=== PATIENT | female | born 1950 | race Caucasian/White ===

== ENCOUNTER 2017-01-15 12:20 | Emergency (ER) | payer MEDICARE, OTHER ==
--- NOTE | ~2017-01-15 | CR72 ---
[facility] A Service of [facility] & [facility] RADIOLOGY TEXT RESULTS PATIENT: ROB IBARRA LOCATION: [facility] : 50 UNIT #: [id number] AGE: [address]: Gurpreet Mayen MD SEX: F ORDER DR: [id number] [facility] [address] [place], [place] [address] [id number] MR#: [id number] Acc #: [id number] NAME: ROB IBARRA : 1950 SEX: F STUDY DATE/TIME: 01/15/2017 12:45 UNIT: [facility] ROOM: STUDY DESCRIPTION: CR Chest Single View Portable Attending Physician: Gurpreet Mayen M.D. Ordering Physician: Gurpreet Mayen M.D. Primary Care Physician: Janet Carlos Aprn MEDICAL IMAGING REPORT This report is preliminary unless electronic signature is present EXAM Chest portable 01/15/2017 1245 hours HISTORY 66-year-old woman with shortness of air and chest pain this morning. COMPARISON 10/30/2014 FINDINGS 2 upright portable views demonstrate normal heart size with stable mildly tortuous atherosclerotic aorta. There is mild pulmonary venous distension with mild interstitial prominence at both lung bases. Question small, new left effusion. IMPRESSION There is mild bibasilar interstitial prominence slightly increased from prior exam. This could represent mild interstitial edema or interstitial pneumonitis. There is hazy blunting of the left costophrenic angle suggesting a new, small left effusion. Dictated by... Ankita Cordero M.D. THIS IS AN ELECTRONICALLY VERIFIED REPORT Ankita Cordero M.D. at 01/15/2017 2:32 PM ROSITA/garrick TD: 01/15/2017 13:42 JOB #: [id number] MEDICAL IMAGING REPORT Page 1 of 1 COPY
--- NOTE | ~2017-01-15 | EKG ---
PATIENT: ROB IBARRA UNIT #: [id number] Ventricular Rate: 103 BPM Atrial Rate: 103 BPM P-R Interval: 152 ms QRS Duration: 84 ms Q-T Interval: 328 ms QTC Calculation(Bezet): 429 ms P [place]: 74 degrees Calculated R [place]: 47 degrees Calculated T [place]: 87 degrees Diagnosis Line: Suspect unspecified pacemaker failure Diagnosis Line: Sinus tachycardia Diagnosis Line: Otherwise normal ECG Diagnosis Line: When compared with ECG of 10-JUN-2015 11:50, Diagnosis Line: No significant change was found Diagnosis Line: Confirmed by BRIEN SANCHEZ MD ([id number]) on Diagnosis Line: 01/15/2017 4:40:42 PM INTERPRETING MD: LAURA RICARDO
[~2017-01-15 12:20] MED LIST: ADVAIR 500-501 EACH IH; ADVAIR DISKU1 500/50 INH; ALB/IPRATROPIUM/1 E1 INH; ALBUTEROL0.83 MG/ML IH; ALBUTEROL17 GM INH; AMLODIPINE BESY10 MG PO; ARTIFICIAL TEA1 EACH OP; ARTIFICIAL TEA3.5 G2 OP; ASPIRIN EC81 M1 PO; ASPIRIN ENTERI325 M1 PO; ATROVENT NEB; AYR SALINE50 M1 NS; BAYER ASPIRIN325 M1 PO; BENZONATATE PO; BIOTENE MOISTUR45 ML MM; CALCIUM + D 6001 TA1 PO; CALCIUM 600 + D1 TA1 PO; COMBIVENT14.7 GM; CYMBALTA PO; DICLOFENAC PO; DOXYCYCLINE MO100 MG PO; DUONEB 2.5-0.5 M3 ML NEB; FERRO-TIME325 MG PO; FLEXERIL PO; FLEXERIL10 MG PO; HYDROCODON-ACE1 EAC1 PO; HYDROCODONE-APA1 T43 PO; IRON325 ( 651 PO; LEVAQUIN PO; LEVAQUIN750 MG PO; LIPITOR PO; LIPITOR20 MG PO; LODINE200 MG; LODINE400 MG PO; MAGNESIUM100 MG PO; MELATONIN5 M1 PO; MIRTAZAPINE30 M1 PO; MIRTAZAPINE30 MG PO; MUCINEX D ER T1 EACH PO; MUCINEX D1 TAB.SR1 PO; MUCINEX DM ER1 EACH PO; MUCINEX100 MG/BOX PO; NIASPAN1000 MG PO; NORVASC PO; NORVASC10 MG PO; PANTOPRAZOLE SO40 MG PO; PREDNISONE PO; PREDNISONE10 MG/DOSE PO; PRINIVIL10 MG PO; PROTONIX PO; PROVENTIL INH0.5 ML; QC CALCIUM 6001 EAC1 PO; REMERON15 MG PO; REMERON30 MG PO; REMERON45 MG PO; SPIRIVA18 MCG INH; SYMBICORT INH; SYNTHROID25 MCG PO; VERAMYST10 GM NS; VIBRAMYCIN100 M1 PO; WELLBUTRIN XL PO; ZITHROMAX1 G/PKT PO; ZOLOFT PO; ZOLOFT50 MG PO; [UNRECOGNIZED DRUG - OTHER]
[2017-01-15 12:52] LABS: BASOPHIL% 0.6 % (0-2.5); DIFF IND NO; EOSINOPHIL# 0.2 X10e3 (0-0.7); EOSINOPHIL% 2.2 % (0.0-7.0); HEMATOCRIT 31.8 % (35.0-45.0); HEMOGLOBIN 10.1 gm/dL (12.0-16.0); LYMPHOCYTE# 0.7 X10e3 (1.0-3.5); LYMPHOCYTE% 10.5 % (17.0-45.0); MEAN CELL VOLUME 84.9 FL (83-96); MEAN CORPUSCULAR HGB CONC 31.8 g/dL (30-36); MEAN PLATELET VOLUME 8.3 FL (6.5-11.5); MONOCYTE# 0.5 X10e3 (0-1.0); MONOCYTE% 7.2 % (3.0-12.0); NEUTROPHIL# 5.5 X10e3 (1.5-7.1); NEUTROPHIL% 79.5 % (40-75); PLATELET COUNT 160 X10e3 (140-420); RED BLOOD COUNT 3.75 X10e (3.90-5.30); RED CELL DISTRIBUTION WIDTH 14.8 % (11.0-15.5)
[2017-01-15 13:01] LABS: POC - CKMB 1.1 ng/mL (0.0-7.9); POC - TROPONIN <0.05 ng/mL (<=0.05)
[2017-01-15 13:05] LABS: INR 0.9; PARTIAL THROMBOPLASTIN TIME 24.1 SECONDS (23.5-31.3); PROTHROMBIN TIME (PATIENT) 9.7 SECONDS (9.6-11.5)
[2017-01-15 13:25] LABS: ALBUMIN SERUM 3.2 g/dL (3.5-5.0); ALKALINE PHOSPHATASE 92 U/L (32-92); ALT (SGPT) 57 U/L (10-40); AMYLASE 7 U/L (0-46); AST (SGOT) 39 U/L (10-42); BILIRUBIN,TOTAL 0.2 mg/dL (0.2-2.0); BLOOD UREA NITROGEN 11 mg/dL (9-23); BUN/CREATININE RATIO 12.22; CALCIUM SERUM 8.9 mg/dL (8.4-10.2); CARBON DIOXIDE 32 mmol/L (22-31); CHLORIDE 100 mmol/L (100-111); CREATININE SERUM 0.9 mg/dL (0.6-1.4); GLOM FILT RATE Estimated 66.7 mL/min (>60); GLUCOSE FASTING 179 mg/dL (70-110); LIPASE 12 U/L (22-51); MAGNESIUM 1.9 mg/dL (1.6-3.0); PHOSPHOROUS 2.1 mg/dL (2.5-4.6); POTASSIUM 3.6 mmol/L (3.5-5.1); PROTEIN TOTAL SERUM 6.5 g/dL (6.0-8.3); SODIUM 138 mmol/L (135-145)
[2017-01-15 13:26] LABS: BILIRUBIN, DIRECT <0.1 mg/dL (0.0-0.2); BILIRUBIN,INDIRECT 0.1 mg/dL (0.0-0.9)
[2017-01-15 14:29] LABS: POC - CKMB <1.0 ng/mL (0.0-7.9); POC - TROPONIN <0.05 ng/mL (<=0.05)
== END 2017-01-15 15:22 | disposition home or self-care (01) ==
LOC: CED 12:20
PROVIDERS: Emergency Medicine
DX: J44.1 Chronic obstructive pulmonary disease with (acute) exacerbation (principal); I10 Essential (primary) hypertension; Z79.899 Other long term (current) drug therapy
CPT/HCPCS: 36415; 71010; 80048; 80076; 82150; 82553; 83605; 83690; 83735; 84100; 84484; 85025; 85610; 85730; 87040; 93005; 96361; 96374; 99284; J2930

== ENCOUNTER → 2017-03-05 | Outpatient (CLI) | payer MEDICARE, OTHER ==
--- NOTE | ~2017-03-05 | CT55 ---
[facility] A Service [facility] RADIOLOGY TEXT RESULTS PATIENT: ROB IBARRA LOCATION: [place] : 50 UNIT #: [id number] AGE: [address]: Julia Wong SEX: F ORDER DR: [id number] [place] [id number] [facility]. [place], [place] [address] [id number] MR#: [id number] Acc #: [id number] NAME: ROB IBARRA : 1950 SEX: F STUDY DATE/TIME: 03/05/2017 15:33 UNIT: [place] ROOM: STUDY DESCRIPTION: CT Chest W Con Attending Physician: Julia Wong A.P.R.N. Referring Physician: Julia Wong A.P.R.N. Ordering Physician: Julia Wong A.P.R.N. Primary Care Physician: Andrew Cline Jr., M.D. MEDICAL IMAGING REPORT This report is preliminary unless electronic signature is present EXAM CT chest INDICATIONS Abnormal chest radiograph. Cough and weight loss. Four-month duration. TECHNIQUE CT of the thorax utilizing 70 mL Isovue-370 IV contrast. Coronal and sagittal reconstructions were obtained. This CT exam was performed with one or more of the following radiation dose reduction techniques: Automatic exposure control, adjustment of mA and/or kV according to patient size, and iterative reconstruction. COMPARISON CTA chest 08/14/2011. FINDINGS There is moderate emphysema. No focal consolidation. Central airways are patent. The thoracic aorta is normal in caliber. No pathologically enlarged mediastinal or hilar lymph nodes. No pericardial or pleural effusion. There are a few cysts in the kidneys. No acute osseous abnormalities. IMPRESSION 1. No acute findings in the chest. 2. Moderate emphysema. Dictated by... Frank Lord M.D. THIS IS AN ELECTRONICALLY VERIFIED REPORT [facility] A Service of [facility] RADIOLOGY TEXT RESULTS PATIENT: ROB IBARRA LOCATION: [place] : 50 UNIT #: [id number] AGE: [address]: Julia Wong SEX: F ORDER DR: Frank Lord M.D. at 03/06/2017 9:12 AM RPC/kamryn TD: 03/05/2017 20:50 JOB #: [id number] MEDICAL IMAGING REPORT Page 1 of 1 COPY
[2017-03-05 20:31] LABS: POC - CREATININE 0.93 mg/dL (0.44-1.03); POC - GFR >60.0 mL/min (>60)
== END | disposition home or self-care (01) ==
LOC: CCAT 10:20
PROVIDERS: Nurse Practitioner Acute Care
DX: R93.8 Abnormal findings on diagnostic imaging of other specified body structures (principal); J43.9 Emphysema, unspecified
CPT/HCPCS: 71260; 82565; Q9967